=== PATIENT | female | born 1945 | race Caucasian/White ===

== ENCOUNTER 2017-03-28 16:38 | Emergency (ER) | payer MEDICARE, OTHER ==
[~2017-03-28] VITALS: Ht 160 cm; Wt 62.1 kg
[~2017-03-28 16:38] MED LIST: ADVAIR 100-501 EACH INH; ADVAIR 500-501 EACH INH; ALBUTEROL2.5 MG/3 M INH; ALENDRONATE SOD70 MG PO; ALPRAZOLAM0.25 MG PO; ASPIRIN EC81 MG PO; ATORVASTATIN CA20 MG PO; AZITHROMYCIN250 MG PO; CALCIUM 600 +1 EAC1 PO; CEPHALEXIN500 MG PO; CIPRO500 MG PO; CIPROFLOXACIN500 MG PO; COLACE100 MG PO; CRANBERRY400 M1 PO; CRANBERRY500 M1 PO; CRANBERRY500 MG PO; DOXYCYCLINE HY100 MG PO; FLUTICASONE PRO16 GM NAS; FLUVIRIN IM; GLUCAGON HCL1 MG IJ; HUMALOG100 UNIT/1 SUB-Q; IBUPROFEN400 MG PO; INCRUSE ELLI62.5 MCG IH; IPRATROPIU0.2 MG/1 M INH; KLONOPIN0.5 MG PO; LEVEMIR100 UNIT/1 SUB-Q; LIPITOR20 MG PO; LISINOPRIL20 MG PO; MACROBID 100 M100 MG PO; METFORMIN HCL500 M1 PO; METFORMIN HCL500 MG PO; MINOCYCLINE HC100 M1 PO; MIRTAZAPINE7.5 MG PO; NAPROSYN500 MG PO; OLANZAPINE20 MG PO; OMEPRAZOLE20 MG PO; PEPCID20 MG PO; PREDNISONE10 MG PO; PREDNISONE20 MG PO; PROAIR HFA8.5 GM INH; PROVENTIL HFA6.7 GM INH; QVAR7.3 G1 IH; QVAR7.3 G1 INH; SPIRIVA18 MCG IH; SPIRIVA18 MCG INH; TIZANIDINE HCL2 MG PO; TOPROL XL25 MG PO; TRIAMCINOLONE A15 G1 TOP; VENTOLIN HFA18 GM IH; VENTOLIN HFA18 GM INH; ZITHROMAX250 MG PO; ZYPREXA20 MG PO
[2017-03-28] MEDS ORDERED: NORCO 5-325 TA1 EACH PO (17:59)
== END 2017-03-28 18:10 | disposition home or self-care (01) ==
LOC: ED 16:38
DX: S42.202A Unspecified fracture of upper end of left humerus, initial encounter for closed fracture (principal); J44.9 Chronic obstructive pulmonary disease, unspecified; E11.9 Type 2 diabetes mellitus without complications; F41.9 Anxiety disorder, unspecified; F17.200 Nicotine dependence, unspecified, uncomplicated; W18.30XA Fall on same level, unspecified, initial encounter; Z90.710 Acquired absence of both cervix and uterus; Z88.0 Allergy status to penicillin; Z88.2 Allergy status to sulfonamides; Z88.8 Allergy status to other drugs, medicaments and biological substances; Z79.899 Other long term (current) drug therapy; Z79.82 Long term (current) use of aspirin
CPT/HCPCS: 73030; 73080; 99283